=== PATIENT | male | born 1965 | race Two or more races ===

== ENCOUNTER 2020-05-31 14:29 | Inpatient (IN) | payer BC, MEDICAID ==
[~2020-05-31] VITALS: Ht 188 cm; Wt 106.4 kg
[2020-05-31] MEDS ORDERED: KETOROLAC TROMETH 60MG/2ML VIAL IM ONE (15:15)
[2020-05-31] MEDS ORDERED: SODIUM CHLORIDE 0.9% 1,000 ML IV ONE ×2 (15:30→16:30)
[2020-05-31] MEDS ORDERED: KETOROLAC TROMETH 30 MG/ML 1ML VIAL IV ONE (15:30)
[2020-05-31 15:44] LABS: Basophils # (auto) 0 10 ^3/uL (0-0.2); Basophils % (auto) 0.3 % (0.0-2.0); Eosinophils # (auto) 0.2 10 ^3/uL (0-0.8); Eosinophils % (auto) 2.4 % (0.0-7.0); Hematocrit 44.3 % (41.0-53.0); Hemoglobin 14.7 g/dL (13.5-17.5); Lymphocytes # (auto) 1.4 10 ^3/uL (0.4-5.4); Lymphocytes % (auto) 22.3 % (10.0-50.0); Mean Corpuscular Hemoglobin 28.7 pg (28.0-32.0); Mean Corpuscular Hgb Conc. 33.2 g/dL (32.0-36.0); Mean Corpuscular Volume 86.4 fL (80.0-100.0); Monocytes # (auto) 0.5 10 ^3/uL (0-1.3); Neutrophils # (auto) 4.3 10 ^3/uL (1.6-8.6); Nucleated Red Blood Cells % 0.3 %; Platelet Count (auto) 217 10^3/uL (140-450); Red Blood Cells 5.12 10^6/uL (4.5-5.90); Red Cell Distribution Width 14.7 % (11.8-14.3); White Blood Cell 6.4 10^3/uL (4.4-10.8)
[2020-05-31 15:55] LABS: Albumin 3.3 g/dL (3.4-5.0); BUN/Creatinine Ratio 11.9; Calcium 8.7 mg/dL (8.5-10.1)
[2020-05-31 15:58] LABS: Bilirubin, Total 0.4 mg/dL (0.2-1.0); Total Protein 7.4 g/dL (6.4-8.2)
--- NOTE | 2020-05-31 15:59 | NUR ---
Patient arrived to floor. No signs of distress noted.
[2020-05-31] MEDS ORDERED: metroNIDAZOLE 500MG/100ML 100 ML IV ONE (16:15)
[2020-05-31] MEDS ORDERED: levoFLOXacin 500MG 100 ML IV ONE (16:15)
[2020-05-31] MEDS ORDERED: MORPHINE SULF INJ 2 MG/ML SYRINGE 1ML IV ONE (16:30)
[2020-05-31] MEDS ORDERED: ONDANSETRON HCL 4 MG/2 ML VIAL IV ONE (16:30)
[2020-05-31] MEDS ORDERED: DOCUSATE SOD 100 MG CAP PO PRN (17:00)
[2020-05-31] MEDS ORDERED: ACETAMINOPHEN 325 MG TAB PO PRN (17:00)
[2020-05-31] MEDS ORDERED: LORazepam 0.5 MG TAB PO PRN (17:00)
[2020-05-31] MEDS ORDERED: HYDROcodone-ACET 5/325MG TAB PO PRN (17:00)
[2020-05-31] MEDS ORDERED: MORPHINE SULF INJ 2 MG/ML SYRINGE 1ML IV PRN (17:00)
[2020-05-31] MEDS ORDERED: TEMAZEPAM 15 MG CAP PO PRN (17:00)
[2020-05-31] MEDS ORDERED: ONDANSETRON HCL 4 MG/2 ML VIAL IV PRN (17:00)
[2020-05-31] MEDS: SODIUM CHLORIDE 0.9% 1,000 ML IV SCH (17:46)
--- NOTE | 2020-05-31 19:55 | NUR ---
OPENING SHIFT NOTE Assumed care of patient who is A&O x4. Currently on RA with no s/s of distress. Reports 5/10 pain in lower right quadrant. Declines pain management at this time. PIV in right AC is intact and patent. IVF infusion as ordered. POC discussed and patient verbalizes understanding. Patient to be kept NPO according to MD orders. Bed is in low locked position with side rails up x1 per patient request. Call light is within reach and patient encouraged to call for assistance when needed. Will continue to monitor for changes PRN.
[2020-05-31] MEDS: metroNIDAZOLE 500MG/100ML 100 ML IV SCH (21:35)
[2020-05-31 22:00] VITALS: BP 101/71
--- NOTE | 2020-05-31 22:40 | NUR ---
IV insertion IV access obtained, via clean sterile technique by inserting 22 gauge catheter at left hand after 2 attempts. IV secured properly. No trauma to site. Patient tolerated well.
--- NOTE | 2020-05-31 22:59 | NUR ---
IV removal IV to right AC infiltrated. DC'd with clean sterile technique, catheter fully intact. Pressure dressing applied to site. Patient tolerated well.
--- NOTE | 2020-05-31 23:00 | NUR ---
Urine sample sent to lab via [employer] system.
[2020-05-31 23:12] LABS: Urine Bacteria FEW /hpf (None Seen); Urine Blood Negative /uL (Negative); Urine Mucus FEW (None Seen); Urine WBC <1 /hpf (0 - 3)
[2020-06-01] MEDS: SODIUM CHLORIDE 0.9% 1,000 ML IV SCH ×3 (02:47→19:30)
[2020-06-01 05:00] VITALS: BP 108/71
[2020-06-01] MEDS: metroNIDAZOLE 500MG/100ML 100 ML IV SCH ×3 (05:51→21:45)
[2020-06-01 05:52] LABS: Basophils # (auto) 0 10 ^3/uL (0-0.2); Basophils % (auto) 0.4 % (0.0-2.0); Eosinophils # (auto) 0.1 10 ^3/uL (0-0.8); Eosinophils % (auto) 2.3 % (0.0-7.0); Hematocrit 39.9 % (41.0-53.0); Hemoglobin 13.4 g/dL (13.5-17.5); Lymphocytes # (auto) 1.1 10 ^3/uL (0.4-5.4); Lymphocytes % (auto) 21.3 % (10.0-50.0); Mean Corpuscular Hemoglobin 29.1 pg (28.0-32.0); Mean Corpuscular Hgb Conc. 33.7 g/dL (32.0-36.0); Mean Corpuscular Volume 86.4 fL (80.0-100.0); Monocytes # (auto) 0.4 10 ^3/uL (0-1.3); Monocytes % (auto) 6.7 % (0.0-12.0); Neutrophils # (auto) 3.7 10 ^3/uL (1.6-8.6); Neutrophils % (auto) 69.3 % (37.0-80.0); Nucleated Red Blood Cells % 0.2 %; Platelet Count (auto) 175 10^3/uL (140-450); Red Blood Cells 4.62 10^6/uL (4.5-5.90); Red Cell Distribution Width 14.5 % (11.8-14.3); White Blood Cell 5.3 10^3/uL (4.4-10.8)
[2020-06-01 06:10] LABS: Potassium 4.1 mmol/L (3.5-5.1)
[2020-06-01 06:14] LABS: BUN/Creatinine Ratio 14.4
--- NOTE | 2020-06-01 07:30 | NUR ---
Morning note Patient resting in bed with eyes closed; respirations even and unlabored, no distress noted. Fall precautions in place with call light within reach.
[2020-06-01 08:41] VITALS: BP 112/66
[2020-06-01] MEDS ORDERED: cefTRIAXone 1GM/50ML D5W 50 ML IV ONE (11:15)
--- NOTE | 2020-06-01 11:23 | NUR ---
was at bedside - Dr. Yasmine Nguyen POC discussed with this RN.
[2020-06-01] MEDS ORDERED: OMNIPAQUE ORAL SOLN 500ml 12mg/ml PO ONE (11:48)
[2020-06-01 13:00] VITALS: BP 108/67
[2020-06-01 13:23] LABS: INR 1.07 (0.9-1.15); Partial Thromboplastin Time 30.2 sec (23.64-32.05)
--- NOTE | 2020-06-01 13:50 | NUR ---
IV started to RFA 20g IV started to the RFA with aseptic technique. IV secured and IV education provided. Patient verbalized understanding. Bed returned to lowest locked position with call light within reach.
[2020-06-01] MEDS ORDERED: IOHEXOL 300 MG/ML 100ML BOTTLE IJ ONE (14:18)
--- NOTE | 2020-06-01 14:35 | NUR ---
Patient off unit via wheelchair to radiology respirations even and unlabored, no distress noted.
--- NOTE | 2020-06-01 15:05 | NUR ---
Stool specimen collected & sent to lab per MD order.
[2020-06-01 17:00] VITALS: BP 119/67
--- NOTE | 2020-06-01 18:51 | NUR ---
Closing note Patient resting in bed with even and unlabored respirations, no distress noted. Fall precautions in place with call light within reach.
--- NOTE | 2020-06-01 19:15 | NUR ---
Care endorsed to MITCHELL Hernandez.
--- NOTE | 2020-06-01 21:32 | NUR ---
PT MEDICATED WITH NORCO FOR HEADACHE. CALL LIGHT IN REACH. WILL CONTINUE TO MONITOR.
[2020-06-01 22:00] VITALS: BP 119/73
[2020-06-02] MEDS: SODIUM CHLORIDE 0.9% 1,000 ML IV SCH ×3 (03:30→19:30)
[2020-06-02 05:00] VITALS: BP 106/69
[2020-06-02] MEDS: metroNIDAZOLE 500MG/100ML 100 ML IV SCH ×3 (06:21→20:53)
[2020-06-02 09:00] VITALS: BP 107/60
[2020-06-02] MEDS: cefTRIAXone 1GM/50ML D5W 50 ML IV SCH (10:44)
[2020-06-02 12:55] VITALS: BP 118/79
[2020-06-02 16:42] VITALS: BP 106/71
--- NOTE | 2020-06-02 21:19 | NUR ---
Patient reporting abdominal pain to RLQ. Patient offered ordered pain medication and hot packs, patient refusing both at this time. Patient informed to use call light if he changes mind, patient verbalized understanding. Will continue to monitor.
[2020-06-02 22:00] VITALS: BP 115/79
[2020-06-03] MEDS: SODIUM CHLORIDE 0.9% 1,000 ML IV SCH ×2 (03:33→11:08)
[2020-06-03 05:00] VITALS: BP 111/73
[2020-06-03] MEDS: metroNIDAZOLE 500MG/100ML 100 ML IV SCH ×2 (06:49→13:54)
--- NOTE | 2020-06-03 07:25 | NUR ---
Closing Note Patient lying in bed, eyes closed, respirations even and unlabored, appears asleep. Pt. awakens to name and touch. Bed in lowest locked position, side rails up x2, call light within reach. No s/s of distress. Care endorsed to dayshift RN.
--- NOTE | 2020-06-03 07:58 | NUR ---
PATIENT ROUNDS PATIENT AWAKE ALERT AND ORIENTED, SITTING IN BED, NO DISTRESS NOTED. BED IN LOWEST POSITION, SIDE RIALS UP X2, CALL LIGHT WITHIN REACH. WILL CONTINUE TO MONITOR. PATIENT ENCOURAGED TO CALL IF THEY NEED ANYTHING.
--- NOTE | 2020-06-03 09:10 | NUR ---
MD DR KARIMI AT BEDSIDE, PLAN FOR DISCHARGE TODAY AT 15:00 PER . PATIENT AWARE AND ALL QUESTIONS AND CONCERNS ADDRESSED.
[2020-06-03] MEDS: cefTRIAXone 1GM/50ML D5W 50 ML IV SCH (09:30)
--- NOTE | 2020-06-03 14:45 | NUR ---
IV removal IV DC'd with clean sterile technique, catheter fully intact. Pressure dressing applied to site. Patient tolerated well. NOTE:
--- NOTE | 2020-06-03 15:02 | NUR ---
Discharge instructions given as ordered. Encourage to follow up with [facility] as instructed. All questions and concerns addressed. Patient verbalized understanding. Medication reconciliation form completed and copy given to patient. IV removed with catheter intact, pressure dressing applied. Patient refused use of wheelchair, gait steady and stable, no distress. Patient discharged with all personal belongings. No distress noted at time of departure.
== END 2020-06-03 15:02 | disposition home or self-care (01) | DRG 392 ==
LOC: ER 14:29 → TELE 14:30 → WEST WING 18:09
PROVIDERS: ADMIT Hospitalist; ATTEND Family Medicine
DX: K57.32 Diverticulitis of large intestine without perforation or abscess without bleeding (principal); E86.0 Dehydration; K52.9 Noninfective gastroenteritis and colitis, unspecified; Z90.49 Acquired absence of other specified parts of digestive tract
CPT/HCPCS: 36415; 74176; 74177; 80048; 80053; 80061; 81001; 83690; 85025; 85610; 85730; 87045; 87427; 87493; 96361; 96365; 96366; 96367; 96375; G0378; J0696; J1885; J1956; J3490

== ENCOUNTER 2021-02-14 18:44 | Inpatient (IN) | payer BC, MEDICAID ==
[~2021-02-14] VITALS: Ht 188 cm; Wt 102.3 kg
[2021-02-14] MEDS ORDERED: SODIUM CHLORIDE 0.9% 1,000 ML IVB ONE (21:00)
[2021-02-14] MEDS: MORPHINE SULFATE 4 MG/ML SYR/VIAL IV ONE ×2 (21:10→21:29)
[2021-02-14] MEDS: ONDANSETRON HCL 4 MG/2 ML VIAL IV ONE ×2 (21:10→21:29)
[2021-02-14 21:23] LABS: Basophils # (auto) 0.1 10 ^3/uL (0-0.2); Basophils % (auto) 2.1 % (0.0-2.0); Eosinophils # (auto) 0.2 10 ^3/uL (0-0.8); Hematocrit 41.2 % (41.0-53.0); Hemoglobin 13.4 g/dL (13.5-17.5); Lymphocytes # (auto) 1.3 10 ^3/uL (0.4-5.4); Lymphocytes % (auto) 19.2 % (10.0-50.0); Mean Corpuscular Hemoglobin 27.9 pg (28.0-32.0); Mean Corpuscular Hgb Conc. 32.6 g/dL (32.0-36.0); Mean Corpuscular Volume 85.3 fL (80.0-100.0); Monocytes # (auto) 0.6 10 ^3/uL (0-1.3); Monocytes % (auto) 8.1 % (0.0-12.0); Neutrophils # (auto) 4.6 10 ^3/uL (1.6-8.6); Neutrophils % (auto) 67.6 % (37.0-80.0); Nucleated Red Blood Cells % 0.2 %; Platelet Count (auto) 313 10^3/uL (140-450); Red Blood Cells 4.83 10^6/uL (4.5-5.90); Red Cell Distribution Width 14.5 % (11.8-14.3); White Blood Cell 6.8 10^3/uL (4.4-10.8)
[2021-02-14 21:28] LABS: Urine Bacteria NONE SEEN /hpf (None Seen); Urine Blood Negative /uL (Negative); Urine Mucus FEW (None Seen); Urine WBC <1 /hpf (0 - 3)
[2021-02-14] MEDS ORDERED: IOHEXOL 300 MG/ML 100ML BOTTLE IJ ONE (21:34)
[2021-02-14 21:35] LABS: Albumin 2.8 g/dL (3.4-5.0); Calcium 8.6 mg/dL (8.5-10.1); Magnesium 2.4 mg/dL (1.6-2.6); Potassium 3.6 mmol/L (3.5-5.1)
[2021-02-14 21:38] LABS: BUN/Creatinine Ratio 13.8; Bilirubin, Total 0.2 mg/dL (0.2-1.0); Total Protein 7.1 g/dL (6.4-8.2)
[2021-02-14] MEDS ORDERED: PIPERACILLIN-TAZO 4.5GM 100 ML IV ONE (23:30)
[2021-02-14] MEDS ORDERED: metroNIDAZOLE 500MG/100ML 100 ML IV ONE (23:30)
[2021-02-15] VITALS (7 sets, daily range): BP systolic 116–130; BP diastolic 53–76
[2021-02-15] MEDS ORDERED: ONDANSETRON HCL 4 MG/2 ML VIAL IV PRN (02:15)
[2021-02-15] MEDS ORDERED: SODIUM CHLORIDE 0.9% 1,000 ML IV SCH (02:15)
[2021-02-15 02:46] LABS: INR 1.08 (0.9-1.15); Partial Thromboplastin Time 29.9 sec (23.0-31.2)
[2021-02-15] MEDS: MORPHINE SULFATE 4 MG/ML SYR/VIAL IV PRN (03:51)
[2021-02-15] MEDS: PIPERACILLIN-TAZOB 3.375GM 100 ML IV SCH ×3 (05:17→18:30)
[2021-02-15] MEDS: metroNIDAZOLE 500MG/100ML 100 ML IV SCH ×3 (05:17→23:28)
[2021-02-15] MEDS: PANTOPRAZOLE 40 MG/10 ML VIAL INJ IV SCH (09:51)
[2021-02-15] MEDS: SOD CHL 0.45% WITH 20MEQ KCL 1,000 ML IV SCH (13:30)
[2021-02-15] MEDS ORDERED: GOLYTELY 4L KIT PO ONE ×2 (15:00→16:45)
[2021-02-16] MEDS: PIPERACILLIN-TAZOB 3.375GM 100 ML IV SCH ×4 (01:02→18:03)
[2021-02-16] MEDS: SOD CHL 0.45% WITH 20MEQ KCL 1,000 ML IV SCH ×2 (01:05→14:19)
[2021-02-16 05:00] VITALS: BP 109/72
[2021-02-16] MEDS: metroNIDAZOLE 500MG/100ML 100 ML IV SCH ×3 (06:18→22:59)
[2021-02-16 07:08] LABS: Albumin 2.7 g/dL (3.4-5.0); Calcium 8.7 mg/dL (8.5-10.1); Potassium 3.8 mmol/L (3.5-5.1)
[2021-02-16 07:12] LABS: BUN/Creatinine Ratio 7.4; Bilirubin, Total 0.4 mg/dL (0.2-1.0); Total Protein 6.6 g/dL (6.4-8.2)
[2021-02-16 07:21] LABS: Basophils # (auto) 0 10 ^3/uL (0-0.2); Basophils % (auto) 0.6 % (0.0-2.0); Eosinophils # (auto) 0.2 10 ^3/uL (0-0.8); Eosinophils % (auto) 2.6 % (0.0-7.0); Hematocrit 41.4 % (41.0-53.0); Hemoglobin 13.9 g/dL (13.5-17.5); Lymphocytes # (auto) 1.1 10 ^3/uL (0.4-5.4); Lymphocytes % (auto) 15.4 % (10.0-50.0); Mean Corpuscular Hemoglobin 28.4 pg (28.0-32.0); Mean Corpuscular Hgb Conc. 33.6 g/dL (32.0-36.0); Mean Corpuscular Volume 84.7 fL (80.0-100.0); Monocytes # (auto) 0.5 10 ^3/uL (0-1.3); Monocytes % (auto) 6.8 % (0.0-12.0); Neutrophils # (auto) 5.5 10 ^3/uL (1.6-8.6); Neutrophils % (auto) 74.6 % (37.0-80.0); Nucleated Red Blood Cells % 0.1 %; Platelet Count (auto) 290 10^3/uL (140-450); Red Blood Cells 4.89 10^6/uL (4.5-5.90); Red Cell Distribution Width 14.2 % (11.8-14.3); White Blood Cell 7.4 10^3/uL (4.4-10.8)
[2021-02-16 08:15] VITALS: BP 106/67
[2021-02-16] MEDS ORDERED: diphenhdrAMINE HCL 50 MG/1 ML VL ONE (08:41)
[2021-02-16 09:00] VITALS: BP 106/67
[2021-02-16] MEDS: PANTOPRAZOLE 40 MG/10 ML VIAL INJ IV SCH (10:21)
[2021-02-16] MEDS: fentaNYL CITRATE 100 MCG/2 ML VL ONE ×2 (12:01→12:06)
[2021-02-16] MEDS: MIDAZOLAM HCL 5 MG/ML-1ML VIAL ONE ×2 (12:01→12:06)
[2021-02-16 13:00] VITALS: BP 110/72
[2021-02-16 17:00] VITALS: BP 127/80
[2021-02-16 21:40] VITALS: BP 107/72
[2021-02-17 05:27] VITALS: BP 106/65
[2021-02-17] MEDS: PIPERACILLIN-TAZOB 3.375GM 100 ML IV SCH ×5 (06:05→23:07)
[2021-02-17] MEDS: metroNIDAZOLE 500MG/100ML 100 ML IV SCH ×3 (06:06→23:06)
[2021-02-17] MEDS: SOD CHL 0.45% WITH 20MEQ KCL 1,000 ML IV SCH ×2 (06:06→16:57)
[2021-02-17 08:15] VITALS: BP 110/67
[2021-02-17 09:00] VITALS: BP 110/67
[2021-02-17] MEDS: PANTOPRAZOLE 40 MG/10 ML VIAL INJ IV SCH (09:50)
[2021-02-17 12:46] VITALS: BP 116/73
[2021-02-17 17:00] VITALS: BP 115/76
[2021-02-17 21:29] VITALS: BP 123/72
[2021-02-18 05:15] VITALS: BP 111/74
[2021-02-18] MEDS: metroNIDAZOLE 500MG/100ML 100 ML IV SCH ×3 (06:25→22:08)
[2021-02-18] MEDS: PIPERACILLIN-TAZOB 3.375GM 100 ML IV SCH ×3 (06:25→17:50)
[2021-02-18] MEDS: SOD CHL 0.45% WITH 20MEQ KCL 1,000 ML IV SCH ×2 (06:26→21:39)
[2021-02-18 08:15] VITALS: BP 110/72
[2021-02-18 09:00] VITALS: BP 105/68
[2021-02-18] MEDS: PANTOPRAZOLE 40 MG/10 ML VIAL INJ IV SCH (10:39)
[2021-02-18 13:00] VITALS: BP 108/76
[2021-02-18] MEDS ORDERED: GOLYTELY 4L KIT PO ONE (13:00)
[2021-02-18 17:00] VITALS: BP 107/73
[2021-02-18 22:00] VITALS: BP 117/80
[2021-02-19] MEDS: PIPERACILLIN-TAZOB 3.375GM 100 ML IV SCH ×5 (00:15→23:52)
[2021-02-19 05:00] VITALS: BP 102/58
[2021-02-19] MEDS: metroNIDAZOLE 500MG/100ML 100 ML IV SCH ×3 (05:26→21:41)
[2021-02-19] MEDS ORDERED: GOLYTELY 4L KIT PO ONE (08:00)
[2021-02-19 08:45] VITALS: BP 100/64
[2021-02-19] MEDS: SOD CHL 0.45% WITH 20MEQ KCL 1,000 ML IV SCH (09:05)
[2021-02-19] MEDS: PANTOPRAZOLE 40 MG/10 ML VIAL INJ IV SCH (09:31)
[2021-02-19] MEDS ORDERED: ceFAZolin 1GM/50ML 50 ML IV ONE (09:54)
[2021-02-19] MEDS ORDERED: fentaNYL CITRATE 100 MCG/2 ML VL ONE ×2 (10:09→13:09)
[2021-02-19] MEDS ORDERED: MIDAZOLAM HCL 1MG/1ML-2 ML VIAL ONE (10:09)
[2021-02-19] MEDS ORDERED: MEPERIDINE HCL (25 MG/ML) 1ML VIAL ONE (10:10)
[2021-02-19] MEDS ORDERED: fentaNYL CITRATE 5 ML ONE (10:10)
[2021-02-19] MEDS ORDERED: DexAMETHasone SOD PHOS 10MG/1ML VIAL INJ ONE (10:14)
[2021-02-19 10:22] LABS: INR 1.18 (0.9-1.15); Partial Thromboplastin Time 28.9 sec (23.0-31.2)
[2021-02-19 12:08] LABS: Albumin 2.6 g/dL (3.4-5.0); Calcium 8.7 mg/dL (8.5-10.1); Magnesium 2.4 mg/dL (1.6-2.6); Potassium 4.3 mmol/L (3.5-5.1)
[2021-02-19 12:12] LABS: BUN/Creatinine Ratio 5.7; Bilirubin, Total 0.3 mg/dL (0.2-1.0); Phosphorus 2.9 mg/dL (2.5-4.90); Pre Albumin 13.7 mg/dL (20.0-40.0); Total Protein 6.7 g/dL (6.4-8.2)
[2021-02-19] MEDS ORDERED: MORPHINE SULFATE 4 MG/ML SYR/VIAL IV PRN (12:15)
[2021-02-19] MEDS ORDERED: MIDAZOLAM HCL 1MG/1ML-2 ML VIAL IV PRN (12:15)
[2021-02-19] MEDS ORDERED: HYDROmorphone HCL 2 MG/ML VL IV PRN (12:15)
[2021-02-19] MEDS ORDERED: ePHEDrine SULFATE 50 MG/ML AMP IV PRN (12:15)
[2021-02-19] MEDS ORDERED: LABETALOL HCL 5 MG/ML 4ML SYRINGE IV PRN (12:15)
[2021-02-19] MEDS ORDERED: ONDANSETRON HCL 4 MG/2 ML VIAL IV PRN (12:15)
[2021-02-19] MEDS ORDERED: PROPOFOL 10 MG/ML 20 ML IV ONE (12:27)
[2021-02-19] MEDS ORDERED: ROCURONIUM 10MG/ML 10ML VIAL IV ONE (13:09)
[2021-02-19] MEDS ORDERED: POVIDONE IODINE 10 % TOPICAL OINT 30GM TOP ONE (14:09)
[2021-02-19] MEDS ORDERED: D5W/SOD CHL 0.45%/KCL 40MEQ 1,000 ML IV ONE (14:30)
[2021-02-19] MEDS ORDERED: TPN PER PHARMACY 0 ML IV SCH (14:30)
[2021-02-19] MEDS ORDERED: HYDROmorphone HCL 2 MG/ML VL ONE (14:46)
[2021-02-19] MEDS: MORPHINE SULFATE 4 MG/ML SYR/VIAL IV PRN ×2 (16:28→20:43)
[2021-02-19 16:44] VITALS: BP 128/79
[2021-02-19] MEDS: InsuLIN REG 1unit/0.01ml Soln (100units/ml) SC SCH ×2 (17:50→23:53)
[2021-02-19] MEDS: ACCU-CHEK COMFORT CURVE STRIP VI SCH ×2 (17:50→23:53)
[2021-02-19] MEDS ORDERED: DEXTROSE (50%) 50ML SYRG IV SCH (18:00)
[2021-02-19] MEDS ORDERED: AMINO ACID INFUSION IN D10W 1,000 ML IV NR (20:00)
[2021-02-19 22:00] VITALS: BP 137/82
[2021-02-20] MEDS: MORPHINE SULFATE 4 MG/ML SYR/VIAL IV PRN ×2 (00:53→06:34)
[2021-02-20 05:00] VITALS: BP 122/69
[2021-02-20] MEDS: metroNIDAZOLE 500MG/100ML 100 ML IV SCH ×3 (05:58→21:27)
[2021-02-20] MEDS: ACCU-CHEK COMFORT CURVE STRIP VI SCH ×3 (05:59→18:27)
[2021-02-20] MEDS: InsuLIN REG 1unit/0.01ml Soln (100units/ml) SC SCH ×3 (05:59→18:27)
[2021-02-20 06:27] LABS: Potassium 4.1 mmol/L (3.5-5.1)
[2021-02-20 06:37] LABS: Albumin 2.6 g/dL (3.4-5.0); BUN/Creatinine Ratio 6.7; Bilirubin, Total 0.4 mg/dL (0.2-1.0); Calcium 8.4 mg/dL (8.5-10.1)
[2021-02-20] MEDS: PIPERACILLIN-TAZOB 3.375GM 100 ML IV SCH (06:56)
[2021-02-20 09:00] VITALS: BP 129/80
[2021-02-20] MEDS ORDERED: HYDROmorphone HCL 2 MG/ML VL IV ONE (09:15)
[2021-02-20] MEDS ORDERED: MORPHINE SULF INJ 2 MG/ML SYRINGE 1ML IV PRN (09:30)
[2021-02-20] MEDS: PANTOPRAZOLE 40 MG/10 ML VIAL INJ IV SCH (10:13)
[2021-02-20] MEDS ORDERED: LIDOCAINE 1% (LOCAL ANESTH.) PF 5ml SDV ID ONE (10:30)
[2021-02-20] MEDS: cefTRIAXone 1GM/50ML D5W 50 ML IV SCH (13:00)
[2021-02-20 13:01] VITALS: BP 124/72
[2021-02-20] MEDS: HYDROmorphone HCL 2 MG/ML VL IV PRN ×2 (13:01→16:03)
[2021-02-20] MEDS ORDERED: AMINO ACID INFUSION IN D10W 1,000 ML IV NR (14:30)
[2021-02-20 16:56] VITALS: BP 137/96
[2021-02-20] MEDS ORDERED: [UNRECOGNIZED DRUG - OTHER] IV NR ×10 (20:00)
[2021-02-20] MEDS ORDERED: SODIUM PHOSPHATES IV NR ×10 (20:00)
[2021-02-20] MEDS ORDERED: SODIUM CHLORIDE IV NR ×10 (20:00)
[2021-02-20] MEDS ORDERED: FAT EMULSION IV NR ×10 (20:00)
[2021-02-20] MEDS: SODIUM CHLOR 0.9% PF (SALINE LOCK) 10ML VIAL/SYR IV SCH (21:27)
[2021-02-20 22:00] VITALS: BP 134/79
[2021-02-20] MEDS ORDERED: ACETAMINOPHEN 325 MG TAB PO PRN (22:30)
[2021-02-21] MEDS: InsuLIN REG 1unit/0.01ml Soln (100units/ml) SC SCH ×4 (00:59→17:24)
[2021-02-21] MEDS: HYDROmorphone HCL 2 MG/ML VL IV PRN ×4 (01:03→20:47)
[2021-02-21 05:22] VITALS: BP 130/85
[2021-02-21] MEDS: metroNIDAZOLE 500MG/100ML 100 ML IV SCH ×3 (06:11→22:24)
[2021-02-21] MEDS: ACCU-CHEK COMFORT CURVE STRIP VI SCH ×4 (06:11→17:25)
[2021-02-21 08:50] VITALS: BP 117/75
[2021-02-21] MEDS: cefTRIAXone 1GM/50ML D5W 50 ML IV SCH (09:09)
[2021-02-21] MEDS: SODIUM CHLOR 0.9% PF (SALINE LOCK) 10ML VIAL/SYR IV SCH ×2 (10:21→22:24)
[2021-02-21] MEDS: PANTOPRAZOLE 40 MG/10 ML VIAL INJ IV SCH (10:21)
[2021-02-21 10:58] LABS: Albumin 2.4 g/dL (3.4-5.0); Calcium 8.2 mg/dL (8.5-10.1); Magnesium 2.5 mg/dL (1.6-2.6); Phosphorus 1.8 mg/dL (2.5-4.90); Potassium 3.6 mmol/L (3.5-5.1)
[2021-02-21 11:01] LABS: BUN/Creatinine Ratio 12.5; Bilirubin, Total 0.3 mg/dL (0.2-1.0); Total Protein 6.6 g/dL (6.4-8.2)
[2021-02-21] MEDS ORDERED: SODIUM PHOSP 40 MEQ in D5W 5% 250 ML IV ONE (11:45)
[2021-02-21 13:00] VITALS: BP 94/69
[2021-02-21 17:00] VITALS: BP 123/78
[2021-02-21] MEDS ORDERED: TPN PER PHARMACY IV NR ×11 (20:00)
[2021-02-21 22:00] VITALS: BP 109/77
[2021-02-22] MEDS: ACCU-CHEK COMFORT CURVE STRIP VI SCH ×5 (00:20→23:51)
[2021-02-22] MEDS: HYDROmorphone HCL 2 MG/ML VL IV PRN ×7 (00:20→23:51)
[2021-02-22] MEDS: InsuLIN REG 1unit/0.01ml Soln (100units/ml) SC SCH ×4 (00:35→16:49)
[2021-02-22 05:02] VITALS: BP 113/74
[2021-02-22] MEDS: metroNIDAZOLE 500MG/100ML 100 ML IV SCH ×3 (06:45→21:41)
[2021-02-22 06:53] LABS: Calcium 8.2 mg/dL (8.5-10.1); Potassium 3.4 mmol/L (3.5-5.1)
[2021-02-22 06:59] LABS: Albumin 2.4 g/dL (3.4-5.0); BUN/Creatinine Ratio 12.8; Bilirubin, Total 0.3 mg/dL (0.2-1.0); Magnesium 2.4 mg/dL (1.6-2.6); Phosphorus 2.2 mg/dL (2.5-4.90); Total Protein 6.6 g/dL (6.4-8.2)
[2021-02-22 08:39] VITALS: BP 108/70
[2021-02-22] MEDS: PANTOPRAZOLE 40 MG/10 ML VIAL INJ IV SCH (09:26)
[2021-02-22] MEDS: cefTRIAXone 1GM/50ML D5W 50 ML IV SCH (09:26)
[2021-02-22] MEDS: SODIUM CHLOR 0.9% PF (SALINE LOCK) 10ML VIAL/SYR IV SCH ×2 (09:26→21:42)
[2021-02-22 12:44] VITALS: BP 142/88
[2021-02-22 16:43] VITALS: BP 115/75
[2021-02-22] MEDS ORDERED: TPN PER PHARMACY IV NR ×11 (20:00)
[2021-02-22 22:00] VITALS: BP 106/72
[2021-02-23] MEDS: InsuLIN REG 1unit/0.01ml Soln (100units/ml) SC SCH ×4 (00:05→18:08)
[2021-02-23 05:00] VITALS: BP 112/73
[2021-02-23] MEDS: ACCU-CHEK COMFORT CURVE STRIP VI SCH ×3 (05:33→18:05)
[2021-02-23] MEDS: metroNIDAZOLE 500MG/100ML 100 ML IV SCH ×3 (05:33→22:41)
[2021-02-23 09:00] VITALS: BP 106/67
[2021-02-23] MEDS: HYDROmorphone HCL 2 MG/ML VL IV PRN ×2 (09:06→12:21)
[2021-02-23] MEDS: SODIUM CHLOR 0.9% PF (SALINE LOCK) 10ML VIAL/SYR IV SCH ×2 (10:46→22:40)
[2021-02-23] MEDS: PANTOPRAZOLE 40 MG/10 ML VIAL INJ IV SCH (10:46)
[2021-02-23] MEDS: cefTRIAXone 1GM/50ML D5W 50 ML IV SCH (10:46)
[2021-02-23 11:35] LABS: Albumin 2.4 g/dL (3.4-5.0); Calcium 8.2 mg/dL (8.5-10.1); Magnesium 2.4 mg/dL (1.6-2.6); Potassium 3.2 mmol/L (3.5-5.1)
[2021-02-23 11:40] LABS: BUN/Creatinine Ratio 16.9; Bilirubin, Total 0.4 mg/dL (0.2-1.0); Phosphorus 2.3 mg/dL (2.5-4.90); Pre Albumin 16.7 mg/dL (20.0-40.0); Total Protein 6.3 g/dL (6.4-8.2)
[2021-02-23] MEDS ORDERED: POTASSIUM PHOSPHATE 44 MEQ in D5W 5% 250 ML IV ONE (12:00)
[2021-02-23 12:44] VITALS: BP 92/69
[2021-02-23] MEDS ORDERED: HYDROmorphone HCL 2 MG/ML VL IV PRN (13:45)
[2021-02-23 16:48] VITALS: BP 112/70
[2021-02-23] MEDS: KETOROLAC TROMETH 30 MG/ML 1ML VIAL IV PRN (19:33)
[2021-02-23] MEDS ORDERED: TPN PER PHARMACY IV NR ×11 (20:00)
[2021-02-23 22:17] VITALS: BP 98/65
[2021-02-24] MEDS: ACCU-CHEK COMFORT CURVE STRIP VI SCH ×4 (00:19→18:00)
[2021-02-24 05:00] VITALS: BP 105/70
[2021-02-24] MEDS: metroNIDAZOLE 500MG/100ML 100 ML IV SCH ×3 (05:49→22:25)
[2021-02-24] MEDS: InsuLIN REG 1unit/0.01ml Soln (100units/ml) SC SCH ×4 (05:51→18:00)
[2021-02-24 06:51] LABS: Potassium 3.7 mmol/L (3.5-5.1)
[2021-02-24 07:02] LABS: Albumin 2.4 g/dL (3.4-5.0); BUN/Creatinine Ratio 15.5; Bilirubin, Total 0.4 mg/dL (0.2-1.0); Calcium 8.3 mg/dL (8.5-10.1); Magnesium 2.2 mg/dL (1.6-2.6); Phosphorus 3.2 mg/dL (2.5-4.90); Total Protein 6.1 g/dL (6.4-8.2)
[2021-02-24] MEDS: PANTOPRAZOLE 40 MG/10 ML VIAL INJ IV SCH (08:14)
[2021-02-24] MEDS: cefTRIAXone 1GM/50ML D5W 50 ML IV SCH (08:14)
[2021-02-24 08:47] VITALS: BP 103/70
[2021-02-24] MEDS: SODIUM CHLOR 0.9% PF (SALINE LOCK) 10ML VIAL/SYR IV SCH ×2 (10:00→22:25)
[2021-02-24] MEDS ORDERED: ACETAMINOPHEN/CODEINE#3 (300/30mg) TAB PO PRN (10:30)
[2021-02-24 13:00] VITALS: BP 101/73
[2021-02-24 17:00] VITALS: BP 111/74
[2021-02-24] MEDS ORDERED: TPN PER PHARMACY IV NR ×11 (20:00)
[2021-02-24] MEDS: KETOROLAC TROMETH 30 MG/ML 1ML VIAL IV PRN (22:53)
[2021-02-25] MEDS: ACCU-CHEK COMFORT CURVE STRIP VI SCH ×4 (06:01→18:26)
[2021-02-25] MEDS: InsuLIN REG 1unit/0.01ml Soln (100units/ml) SC SCH ×4 (06:01→18:00)
[2021-02-25] MEDS: metroNIDAZOLE 500MG/100ML 100 ML IV SCH ×3 (06:02→20:53)
[2021-02-25 07:28] LABS: Basophils # (auto) 0 10 ^3/uL (0-0.2); Basophils % (auto) 0.7 % (0.0-2.0); Eosinophils # (auto) 0.3 10 ^3/uL (0-0.8); Eosinophils % (auto) 4.1 % (0.0-7.0); Hematocrit 36.4 % (41.0-53.0); Hemoglobin 12.5 g/dL (13.5-17.5); Lymphocytes # (auto) 1.1 10 ^3/uL (0.4-5.4); Lymphocytes % (auto) 17.3 % (10.0-50.0); Mean Corpuscular Hemoglobin 28.5 pg (28.0-32.0); Mean Corpuscular Hgb Conc. 34.3 g/dL (32.0-36.0); Mean Corpuscular Volume 83.1 fL (80.0-100.0); Monocytes # (auto) 0.5 10 ^3/uL (0-1.3); Monocytes % (auto) 7.5 % (0.0-12.0); Neutrophils # (auto) 4.7 10 ^3/uL (1.6-8.6); Neutrophils % (auto) 70.4 % (37.0-80.0); Nucleated Red Blood Cells % 0.1 %; Platelet Count (auto) 307 10^3/uL (140-450); Red Blood Cells 4.38 10^6/uL (4.5-5.90); Red Cell Distribution Width 14.3 % (11.8-14.3); White Blood Cell 6.6 10^3/uL (4.4-10.8)
[2021-02-25 07:45] LABS: Potassium 3.4 mmol/L (3.5-5.1)
[2021-02-25 07:49] LABS: INR 1.18 (0.9-1.15); Partial Thromboplastin Time 28.1 sec (23.0-31.2)
[2021-02-25 07:58] LABS: Albumin 2.2 g/dL (3.4-5.0); BUN/Creatinine Ratio 17.9; Bilirubin, Total 0.3 mg/dL (0.2-1.0); Magnesium 2.4 mg/dL (1.6-2.6); Phosphorus 2.5 mg/dL (2.5-4.90); Total Protein 5.9 g/dL (6.4-8.2)
[2021-02-25 09:00] VITALS: BP_SYST 108; BP_SYST 148; BP_DIAS 75; BP_DIAS 91
[2021-02-25] MEDS ORDERED: POTASSIUM PHOSPHATE 22 MEQ in SODIUM CHL 0.9% 100 ML IV ONE (11:00)
[2021-02-25] MEDS: cefTRIAXone 1GM/50ML D5W 50 ML IV SCH (11:01)
[2021-02-25] MEDS: PANTOPRAZOLE 40 MG/10 ML VIAL INJ IV SCH (11:01)
[2021-02-25] MEDS: SODIUM CHLOR 0.9% PF (SALINE LOCK) 10ML VIAL/SYR IV SCH ×2 (11:01→20:53)
[2021-02-25 16:53] VITALS: BP 100/63
[2021-02-25] MEDS ORDERED: TPN PER PHARMACY IV NR ×11 (20:00)
[2021-02-25 22:00] VITALS: BP 114/64
[2021-02-26] MEDS: ACCU-CHEK COMFORT CURVE STRIP VI SCH ×2 (00:10→05:14)
[2021-02-26 05:00] VITALS: BP 101/75
[2021-02-26] MEDS: InsuLIN REG 1unit/0.01ml Soln (100units/ml) SC SCH ×2 (05:14)
[2021-02-26] MEDS: metroNIDAZOLE 500MG/100ML 100 ML IV SCH (05:14)
[2021-02-26 07:55] LABS: Potassium 4.1 mmol/L (3.5-5.1)
[2021-02-26 08:06] LABS: Albumin 2.4 g/dL (3.4-5.0); BUN/Creatinine Ratio 15.2; Bilirubin, Total 0.3 mg/dL (0.2-1.0); Calcium 8.2 mg/dL (8.5-10.1); Magnesium 2.4 mg/dL (1.6-2.6); Phosphorus 2.4 mg/dL (2.5-4.90); Total Protein 6.2 g/dL (6.4-8.2)
[2021-02-26 09:00] VITALS: BP_SYST 106; BP_SYST 163; BP_DIAS 107; BP_DIAS 71
[2021-02-26] MEDS: cefTRIAXone 1GM/50ML D5W 50 ML IV SCH (10:26)
[2021-02-26] MEDS: PANTOPRAZOLE 40 MG/10 ML VIAL INJ IV SCH (10:27)
[2021-02-26] MEDS: SODIUM CHLOR 0.9% PF (SALINE LOCK) 10ML VIAL/SYR IV SCH (10:27)
[2021-02-26] MEDS ORDERED: PANT40TA2 PO (12:40)
[2021-02-26 13:00] VITALS: BP 101/64
[2021-02-26 14:03] VITALS: BP 104/55
[2021-02-26] MEDS ORDERED: TPN PER PHARMACY IV NR ×11 (20:00)
== END 2021-02-26 16:40 | disposition home or self-care (01) | DRG 329 ==
LOC: ER 18:44 → OVERFLOW 02-15 02:09 → WEST WING 02-15 02:37
PROVIDERS: ADMIT Nurse Practitioner; ATTEND Internal Medicine
PROC: 0DBM8ZX Excision of Descending Colon, Via Natural or Artificial Opening Endoscopic, Diagnostic (ICD-10-PCS; principal; 2021-02-16 11:55)
PROC: 0DTF0ZZ Resection of Right Large Intestine, Open Approach (ICD-10-PCS; 2021-02-19)
PROC: 05HB33Z Insertion of Infusion Device into Right Basilic Vein, Percutaneous Approach (ICD-10-PCS; 2021-02-20)
PROC: B54MZZA Ultrasonography of Right Upper Extremity Veins, Guidance (ICD-10-PCS; 2021-02-20)
DX: C18.2 Malignant neoplasm of ascending colon (principal); K35.33 Acute appendicitis with perforation, localized peritonitis, and gangrene, with abscess; E44.0 Moderate protein-calorie malnutrition; N13.30 Unspecified hydronephrosis; C18.0 Malignant neoplasm of cecum; E66.9 Obesity, unspecified; K64.8 Other hemorrhoids; K57.30 Diverticulosis of large intestine without perforation or abscess without bleeding; Z20.822 Contact with and (suspected) exposure to COVID-19; Z53.29 Procedure and treatment not carried out because of patient's decision for other reasons; K40.20 Bilateral inguinal hernia, without obstruction or gangrene, not specified as recurrent; Z85.038 Personal history of other malignant neoplasm of large intestine; Z68.29 Body mass index [BMI] 29.0-29.9, adult
CPT/HCPCS: 36415; 36569; 71045; 74177; 80053; 81001; 82040; 82306; 82378; 82962; 83605; 83690; 83735; 84100; 84443; 84478; 85025; 85610; 85730; 86850; 86900; 86901; 87040; 87426; 96365; 96367; 96375; C9113; G0378; J0690; J0696; J1100; J1815; J1885; J2250; J2405; J2543; J2704; J3490; J7060; J7131

== ENCOUNTER 2025-10-03 13:44 | Emergency (ER) | payer BC, MEDICAID ==
[~2025-10-03] VITALS: Ht 188 cm; Wt 112.0 kg
[~2025-10-03 13:44] MED LIST: PANT40TA2 PO
[2025-10-03] MEDS ORDERED: SODIUM CHLORIDE 0.9% 1,000 ML IVB ONE (14:00)
[2025-10-03] MEDS ORDERED: PANTOPRAZOLE 40 MG/10 ML VIAL INJ IV ONE (14:00)
[2025-10-03] MEDS ORDERED: MORPHINE SULFATE 4 MG/ML SYR/VIAL IV ONE (14:00)
[2025-10-03] MEDS ORDERED: ONDANSETRON HCL 4 MG/2 ML VIAL IV ONE (14:00)
--- NOTE | 2025-10-03 14:15 | ED.PDOC ---
General HPI Comments 59y M who presents to the ED for chief complaint of urinary complaints. Pt states he has been having urinary frequency for the past few days. Pt otherwise denies hematuria, dysuria, or any other complaints. Pt otherwise has stable vitals in the ED. Pt denies any other symptoms at this time Chief Complaint: Urinary Time Seen by MD: 14:13 Primary Care Provider: ÁLVAROK Reviewed notes: Medications, Allergies Allergies: Coded Allergies: NO KNOWN ALLERGIES (Unverified , 05/31/20) Home Meds Active Scripts Pantoprazole Sodium Sesquihydr (Protonix) 40 Mg Tab, 40 MG PO DAILY, #30 TAB Prov:DAREK VAZQUEZ MD 02/26/21 Information Source: Patient Mode of Arrival: Ambulatory Brought in by: self Severity: Moderate Inability to void: None Timing: Days Duration: Since onset Prehospital treatment: None Onset: Spontaneous Symptoms: Urgency History of: None Penile discharge: None Modifying factors: None associated signs and symptoms: Urgency Past Medical History PAST MEDICAL HISTORY: Denies Surgical History: Appendectomy Family History Family History: Reviewed,noncontributory to illness Social History Smoker: Non-Smoker Alcohol: Denies ETOH Use Drugs: Denies Drug Use Lives In: Home Constitutional: denies: chills, diaphoresis, fatigue, fever, malaise, sweats, weakness, others EENTM: denies: blurred vision, double vision, ear bleeding, ear discharge, ear drainage, ear pain, ear ringing, eye pain, eye redness, hearing loss, mouth pain, mouth swelling, nasal discharge, nose bleeding, nose congestion, nose pain, photophobia, tearing, throat pain, throat swelling, voice changes, others Respiratory: denies: cough, hemoptysis, orthopnea, SOB at rest, shortness of breath, SOB with excertion, stridor, wheezing, others Cardiovascular: denies: chest pain, dizzy spells, diaphoresis, Dyspnea on exertion, edema, irregular heart beat, left arm pain, lightheadedness, palpitations, PND, syncope, others Gastrointestinal: denies: abdomen distended, abdominal pain, blood streaked bowels, constipated, diarrhea, dysphagia, difficulty swallowing, hematemesis, melena, nausea, poor appetite, poor fluid intake, rectal bleeding, rectal pain, vomiting, others Genitourinary: reports: frequency; denies: burning, dysuria, flank pain, hematuria, incontinence, penile discharge, penile sore, pain, testicle pain, testicle swelling, urgency, others Neurological: denies: dizziness, fainting, headache, left sided numbness, left sided weakness, numbness, paresthesia, pre-existing deficit, right sided numbness, right sided weakness, seizure, speech problems, tingling, tremors, weakness, others Musculoskeletal: denies: back pain, gout, joint pain, joint swelling, muscle pain, muscle stiffness, neck pain, others Integumetry: denies: bruises, change in color, change in hair/nails, dryness, laceration, lesions, lumps, rash, wounds, others Allergic/Immunocompromised: denies: Difficulty Healing, Frequent Infections, Hives, Itching, others Hematologic/Lymphatic: denies: anemia, blood clots, easy bleeding, easy bruising, swollen glands, others Endocrine: denies: excessive hunger, excessive sweating, excessive thirst, excessive urination, flushing, intolerance to cold, intolerance to heat, unexplained weight gain, unexplained weight loss, others Psychiatric: denies: anxiety, bipolar disorder, depression, hopeless, panic disorder, schizophrenia, sleepless, suicidal, others All Other Systems: Reviewed and Negative Physical Exam General Appearance: No Apparent Distress HEENT: Normal ENT Inspection, Pharynx Normal, TMs Normal Neck: Full Range of Motion, Non-Tender, Normal, Normal Inspection Respiratory: Chest Non-Tender, Lungs Clear, No Accessory Muscle Use, No Respiratory Distress, Normal Breath Sounds Cardiovascular: No Edema, No JVD, No Murmur, No Gallop, Normal Peripheral Pulses, Regular Rate/Rhythm Breast Exam: Deferred Gastrointestinal: No Organomegaly, Non Tender, No Pulsatile Mass, Normal Bowel Sounds, Soft Genitalia: Deferred Pelvic: Deferred Rectal: Deferred Extremities: No calf tenderness, Normal capillary refill, Normal inspection, Normal range of motion, Non-tender, No pedal edema Musculoskeletal : Apperance: Normal Neurologic: Alert, bariatric physician II-XII nml as Tested, No Motor Deficits, Normal Affect, Normal Mood, No Sensory Deficits Cerebellar Function: Normal Reflexes: Normal Skin: Dry, Normal Color, Warm Lymphatic: No Adenopathy Was a procedure done? Was a procedure done?: No Differential Diagnosis Kidney stone (Female): Strain, Urolithiasis Urinary Problem (Male): Urethritis, UTI, Other (urge incontinence) X-Ray, Labs, Meds, VS Vital Signs Date Time Temp Pulse Resp B/P (MAP) Pulse Ox O2 Delivery O2 Flow Rate FiO2 10/03/25 13:46 97.9 73 20 116/82 96 97.9 Lab Test 10/03/25 16:02 Range/Units Urine Color Yellow Yellow Urine Clarity Clear Clear Urine pH 5.0 5.0-9.0 Urine Specific [place] 1.027 1.001-1.035 Urine Protein Negative Negative Urine Ketones Negative Negative Urine Blood Negative Negative /uL Urine Nitrite Negative Negative Urine Bilirubin Negative Negative Urine Urobilinogen Normal Negative mg/dL Urine Leukocyte Esterase Negative Negative /uL Urine RBC 1 0 - 3 /hpf Urine Microscopic WBC < 1 0-3 /HPF Urine Squamous Epithelial Cells None seen <5 /hpf Urine Bacteria None seen None Seen /hpf Urine Mucus Few None Seen Urine Glucose Normal Normal mg/dL The patient is encouraged to follow up with the urologist The urine test is negative for infection The patient will follow up with the primary care doctor The patient will return to the emergency department's the condition worsens. Time of 1ST Reevaluation: 14:45 Reevaluation 1ST: Unchanged Patient Education/Counseling: Diagnosis, Treatment Family Education/Counseling: Diagnosis, No Family Present SEPSIS Sepsis Screen Date sepsis recognized/suspect: Oct 03, 2025 Time Sepsis recognized/suspect: 1346 Recent Procedure: No On Antibiotic Therapy: No Respiratory Rate >20: No Heart Rate >90: No Temp<36 C (96.8 F) or >38.3 C: No SBP <90 or MAP <65 mmHG: No New Acute Mental Status Change: No Is the patient on CPAP, BIPAP,: No Vital Signs Date Time Temp Pulse Resp B/P (MAP) Pulse Ox O2 Delivery O2 Flow Rate FiO2 10/03/25 13:46 97.9 73 20 116/82 96 97.9 Departure 1 Departure Time of Disposition: 16:33 Impression: Primary Impression: Urinary incontinence Qualified Codes: R32 - Unspecified urinary incontinence Disposition: 01 HOME / SELF CARE / HOMELESS Condition: Fair Discharged With: Self Critical Care Note Critical Care Time?: No Stability Stability form required: No Heart Score Heart Score: Heart Score Response (Comments) Value History N/A 0 EKG N/A 0 Age N/A 0 Risk Factors N/A 0 Troponin N/A 0 Total 0 I personally scribed for DWIGHT CHAVARRIA MD ([email or web address]) on 10/03/25 at 14:15. Electronically submitted by Daisy Joe ([email or web address]). DWIGHT CHAVARRIA MD Oct 03, 2025 14:15
[2025-10-03 16:26] LABS: Urine Protein, UAD Negative (Negative)
[2025-10-03 16:41] VITALS: BP 109/75; PULSE 66; RESP 16; TEMP 98.7; O2SAT 95
== END 2025-10-03 16:43 | disposition home or self-care (01) ==
LOC: ER 13:44
DX: R32 Unspecified urinary incontinence (principal); R35.0 Frequency of micturition; Z90.49 Acquired absence of other specified parts of digestive tract
CPT/HCPCS: 81001